=== PATIENT | female | born 1950 | race Two or more races ===

== ENCOUNTER 2025-02-07 02:15 | Emergency (ER) | payer MEDICARE, MEDICAID, SELFPAY ==
[2025-02-07 03:26] VITALS: BP 180/70; PULSE 76; RESP 20; TEMP 37.4; O2SAT 97
--- NOTE | 2025-02-07 03:33 | XR_ITS ---
Examination: Duplex scan of the lower extremity, unilateral right complete Date and time of exam: February 07, 2025 0518 hours INDICATIONS: Right leg pain beginning today Technique: Duplex scan of the extremity veins using B-mode/grayscale imaging and Doppler spectral analysis and color flow Attention is directed to internal echogenicity, compression and augmentation involving these veins, color flow assessment, spectral analysis Findings: Major deep venous structures in the extremity demonstrate normal course and caliber. There is no evidence of deep vein thrombosis. Normal color flow and spectral analysis 4.1 cm popliteal cyst Impression: Negative for DVT..
--- NOTE | 2025-02-07 03:33 | XR_ITS ---
Examination: AP chest single view Technique one AP portable upright chest single view Date and time: February 07, 2025, 0352 hours INDICATIONS: Weakness shortness of breath today. FINDINGS: No significant cardiac enlargement. No pneumonia or pulmonary edema. Prominent osteopenia IMPRESSION: No active disease.
--- NOTE | 2025-02-07 03:33 | EKG_ITS ---
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
--- NOTE | 2025-02-07 03:35 | PD.EDRME ---
Rapid Medical Screening Exam [facility] Arrival date/time: 02/07/25 02:15 74F with history of HTN presents to ED with 1 week worsening R lower back pain that radiates down RLE and up to neck and head. Patient denies fall/trauma. Chief Complaint: Extremity Problem,Nontraumatic Vital signs: Vital Signs Temperature 99.4 F 02/07/25 03:26 Pulse Rate 76 02/07/25 03:26 Respiratory Rate 20 02/07/25 03:26 Blood Pressure 180/70 H 02/07/25 03:26 Pulse Oximetry (%) 97 02/07/25 03:26 Oxygen Delivery Method Room Air 02/07/25 03:26
[2025-02-07] MEDS: HYDROcodone/APAP 5/325 TABLET 1 TAB PO (03:42)
[2025-02-07 04:41] LABS: Basophils # (Auto) 0.1 Thou/mm3 (0.0-0.2); Basophils % (Auto) 1 % (0-2.5); Eosinophils # (Auto) 0.2 Thou/mm3 (0.0-0.5); Eosinophils % (Auto) 2 % (0-10); Hematocrit 37.2 % (36.0-46.0); Hemoglobin 12.2 g/dL (12.0-16.0); Immature Granulocytes % (Auto) 1 % (0-0); Immature Granulocytes Auto 0.05 Thou/mm3 (0.00-0.00); Lymphocytes # (Auto) 2.1 Thou/mm3 (1.0-4.8); Lymphocytes % (Auto) 22 % (10-50); Mean Corpuscular HGB Conc 32.8 g/dl (31.0-37.0); Mean Corpuscular Hemoglobin 27.9 pg (25.0-35.0); Mean Corpuscular Volume 85 fL (80-100); Monocytes # (Auto) 0.8 Thou/mm3 (0.0-0.8); Monocytes % (Auto) 8 % (0-12); Neutrophils # (Auto) 6.6 Thou/mm3 (1.8-7.7); Neutrophils % (Auto) 67 % (37-80); Nucleated Red Blood Cell % 0 /100 WBC (0); Platelet Count 249 Thou/mm3 (140-440); RDW Standard Deviation 41.9 fL (36.4-46.3); Red Blood Count 4.38 Miln/mm3 (4.00-5.20); White Blood Count 9.8 Thou/mm3 (3.6-11.0)
[2025-02-07 04:57] LABS: Partial Thromboplastin Time 26.8 Seconds (22.0-36.0); Prothrombin Time 10.7 Seconds (9.0-12.2)
[2025-02-07 05:02] LABS: Alanine Aminotransferase 17 U/L (10-49); Albumin, Serum 4.9 gm/dL (3.4-4.8); Albumin/Globulin Ratio 2.1 (1.2-2.2); Alkaline Phosphatase 88 U/L (46-116); Anion Gap 9 (7-16); Aspartate Amino Transferase 24 U/L (0-34); BUN/Creatinine Ratio 29 Ratio (12-20); Bilirubin,Total 0.3 mg/dL (0.3-1.2); Blood Urea Nitrogen 20 mg/dL (9-23); Calcium 9.4 mg/dL (8.3-10.6); Calcium (Corrected) 9.4 mg/dL (8.5-10.1); Carbon Dioxide 27.9 mMol/L (20.0-31.0); Chloride 100 mMol/L (98-107); Creatinine (Component) 0.7 mg/dL (0.6-1.3); Globulin 2.3 gm/dL (2.3-3.5); Glucose 121 mg/dL (74-106); Osmolality,Calculated 277 (275-295); Sodium 137 mMol/L (136-145); Total Protein 7.2 gm/dL (5.7-8.2); Troponin I < 0.020 ng/mL (0.0-0.045); eGFR > 60 See Note
[2025-02-07 06:14] VITALS: BP 152/71; PULSE 63; RESP 19; TEMP 36.8; O2SAT 98
[2025-02-07] MEDS: KETOROLAC INJ 60 MG/2 ML VIAL 30 MG IM (06:34)
--- NOTE | 2025-02-07 08:00 | PD.EDEXREM ---
ED Extremity Problem RME/HPI General Chief complaint: Extremity Problem,Nontraumatic Stated complaint: RIGHT LEG PAIN Time Seen by Provider: 02/07/25 06:21 Source: patient Arrival date/time: 02/07/25 02:15 74-year-old female with a history of hypertension presents to the emergency room with a chief complaint of lower back pain and pain that shoots down her right lower leg x 1 week. Mode of arrival: ambulatory Limitations: no limitations RME / HPI RME / HPI Narrative: 02/07/25 02:15 74F with history of HTN presents to ED with 1 week worsening R lower back pain that radiates down RLE and up to neck and head. Patient denies fall/trauma. Related Data Previous Rx's ?Medication ?Instructions ?Recorded alprazolam 0.25 mg tablet (Xanax) 0.25 mg PO TID PRN anxiety #14 tabs 03/08/24 famotidine 40 mg tablet (Pepcid) 40 mg PO QDAY #30 tabs 03/08/24 magnesium hydroxide 400 mg/5 mL 20 ml PO TID PRN stomach upset 03/08/24 oral suspension (Milk of Magnesia) #355 mL Allergies Allergy/AdvReac Type Severity Reaction Status Date / Time No Known Allergies Allergy Verified 02/07/25 03:06 Review of Systems Review of Systems Systems Reviewed: All systems reviewed, normal except as documented Constitutional Constitutional: Reports system reviewed and no additional complaints, except as documented, Denies fatigue, Denies fever(s), Denies headache(s) and Denies weakness Eyes Eyes: Reports system reviewed and no additional complaints, except as documented, Denies blurry vision and Denies change in vision ENT Ears, Nose, Mouth, and Throat: Reports system reviewed and no additional complaints, except as documented, Denies otalgia, Denies headache(s), Denies nasal congestion, Denies throat swelling and Denies vertigo Cardiovascular Cardiovascular: Reports system reviewed and no additional complaints, except as documented, Denies chest pain, Denies dyspnea and Denies dyspnea on exertion Respiratory Respiratory: Reports system reviewed and no additional complaints, except as documented, Denies chest congestion, Denies cough, Denies dyspnea, Denies dyspnea on exertion and Denies wheezing Gastrointestinal Gastrointestinal: Reports system reviewed and no additional complaints, except as documented, Denies abdominal pain, Denies cramping, Denies nausea and Denies vomiting Genitourinary Genitourinary: Reports system reviewed and no additional complaints, except as documented Musculoskeletal Musculoskeletal: Reports system reviewed and no additional complaints, except as documented, Reports abnormal gait, Reports arthralgias, Denies back pain, Reports joint swelling and Reports limited range of motion Integumentary/Breasts Skin/Breast: Reports system reviewed and no additional complaints, except as documented and Denies wounds Neurologic Neurologic: Reports system reviewed and no additional complaints, except as documented, Reports abnormal gait, Denies confusion, Denies headache(s), Denies lack of coordination, Denies vertigo and Denies weakness Psychiatric Psychiatric: Reports system reviewed and no additional complaints, except as documented, Denies anxiety, Denies confusion, Denies depression, Denies paranoia, Denies suicidal ideation and Denies tactile hallucinations Endocrine Endocrine: Reports system reviewed and no additional complaints, except as documented and Denies fatigue Hematologic/Lymphatic Hematologic/Lymphatic: Reports system reviewed and no additional complaints, except as documented and Denies lymphadenopathy Allergic/Immunologic Allergic/Immunologic: Reports system reviewed and no additional complaints, except as documented, Denies throat swelling, Denies urticaria and Denies wheezing Past Medical History Past Medical History CARDIAC: Negative Congestive Heart Failure RESPIRATORY: Negative Chronic Obstructive Pulmonary Disease (COPD) GENITOURINARY: Negative Renal Disease ENDOCRINE: Negative Diabetes Mellitus Type 1 or Diabetes Mellitus Type 2 Social History SMOKING STATUS: Never smoker ED Exam General Limitations: Present no limitations General appearance: Present alert and in no apparent distress Head Head exam: Present atraumatic Eye Eye exam: Present normal appearance, PERRL and EOMI ENT ENT exam: Present normal exam, normal oropharynx and mucous membranes moist Neck Neck exam: Present normal inspection, full ROM and trachea midline Chest Chest inspection: Present normal inspection and symmetric chest wall rise Respiratory Respiratory exam: Present normal lung sounds bilaterally Cardiovascular Cardiovascular exam: Present regular rate, normal rhythm and normal heart sounds Abdominal Exam Abdominal exam: Present soft and normal bowel sounds Extremities Exam Extremities exam: Present normal inspection and full ROM Expanded Lower Extremity Exam Hip/Pelvis exam: Present normal inspection Upper leg exam: Present normal inspection Knee exam: Present normal inspection Lower leg exam: Present full ROM and tenderness Ankle exam: Present normal inspection Foot/toe exam: Present normal inspection Gait: observed and limited by pain Back Exam Back exam: Present normal inspection, full ROM, vertebral tenderness and sciatic notch tenderness (R) Neurological Exam Neurological exam: Present alert, oriented X3 and CN II-XII intact Psychiatric Psychiatric exam: Present normal affect and normal mood Skin Skin exam: Present warm, dry, intact and normal color Course Quality Measures none Orders Category Date Time Status EKG (ED ONLY) *Do not use* NOW Care 02/07/25 03:33 Completed EKG (ED Only) Stat Exams 02/07/25 03:33 Draft US venous doppler LE RT Stat Exams 02/07/25 03:33 Completed XR chest 1V portable Stat Exams 02/07/25 03:33 Taken CBC Stat Lab 02/07/25 04:15 Completed Comprehensive Metabolic Panel Stat Lab 02/07/25 04:15 Completed Magnesium Stat Lab 02/07/25 04:15 Completed Partial Thromboplastin Time Stat Lab 02/07/25 04:15 Completed Prothrombin Time with INR Stat Lab 02/07/25 04:15 Completed Troponin I Stat Lab 02/07/25 04:15 Completed HYDROcodone*/APAP 5/325 [[place] 5/325] Med 02/07/25 03:33 Discontinued 1 tab PO X1 ONE Ketorolac Inj [Toradol Inj] Med 02/07/25 06:21 Discontinued 30 mg IM X1 ONE Vital Signs Vital signs: Vital Signs Temperature 99.4 F 02/07/25 03:26 Pulse Rate 76 02/07/25 03:26 Respiratory Rate 20 02/07/25 03:26 Blood Pressure 180/70 H 02/07/25 03:26 Pulse Oximetry (%) 97 02/07/25 03:26 Oxygen Delivery Method Room Air 02/07/25 03:26 O2 saturation 97% within normal limits Extremity Problem MDM Narrative MDM Narrative:: 74-year-old female with a history of hypertension presents to the emergency room with a chief complaint of lower back pain and pain that shoots down her right lower leg x 1 week. Patient is hemodynamically stable and in no apparent distress. Physical examination shows lumbar back pain that shoots down her right hip down her right knee and into her right lower leg. There is no swelling and there is no erythema. An ultrasound Doppler was completed which was negative for DVT. There was a 4.1 cm incidental finding of a popliteal cyst. The patient was educated to follow-up with her primary care provider for further management. Patient has had a knee replacement to her left knee and states since her surgery she has put a lot of pressure on her right side. Patient denies any ground-level fall or trauma. Patient was discharged and educated to follow-up with primary care provider in the next 24 to 48 hours and return to the emergency room for any evidence of worsening signs or symptoms Patient data External records reviewed:: [facility] previous records Clinical information provided by:: patient Social determinants that could affect healthcare access:: none Patient has the following chronic illnesses:: Hypertension How is presenting disease/condition affected by chronic disease/condition?: no chronic disease Evaluation data The following diagnostics were reviewed and interpreted by me:: lab results and radiology exam(s) Lab and/or radiology exams considered but not ordered:: Labs and radiology exams considered in order Interpretation Summary: Ultrasound Doppler-Findings: Major deep venous structures in the extremity demonstrate normal course and caliber. There is no evidence of deep vein thrombosis. Normal color flow and spectral analysis 4.1 cm popliteal cyst Impression: Negative for DVT.. Medications / Prescriptions Medications or Prescriptions considered but not ordered:: Medication given Medication administrations:: Medication Administration History Discontinued Medications Hydrocodone Bitart/Acetaminophen (Hydrocodone/[place]ap 5/325 Tablet) 1 tab PO X1 ONE Stop: 02/07/25 03:34 Last Admin: 02/07/25 03:42 Dose: 1 tab Documented By: CVL Ketorolac Tromethamine (Ketorolac Inj 60 Mg/2 Ml Vial) 30 mg IM X1 ONE Stop: 02/07/25 06:22 Last Admin: 02/07/25 06:34 Dose: 30 mg Documented By: CVL Medication given Consultations Consultation(s) initiated? (list below): No Diagnosis Extremity Problem Differential Diagnosis: other (Acute right lower extremity pain/sciatica) Most likely diagnosis given after review of the tests above:: Sciatica Admission Indicated Admission indicated?: not indicated Admission Request Was there a request for admission?: No Disposition Plan Disposition Plan: Discharge Discharge Attestation Discharge Attestation: The patient and all family members were given an opportunity to ask questions and understood the discharge instructions. Discharge instructions specifically effects, indications for sooner follow up or return to the emergency department, and the expected course of current diagnosis. Patient condition: Stable Discharge Plan Plan Patient Disposition: HOME (Self Care) Discharge Disposition comment: Stable Prescriptions/Referrals Prescriptions/Med Rec: No Action alprazolam [Xanax] 0.25 mg tablet 0.25 mg PO TID PRN (Reason: anxiety) Qty: 14 0RF famotidine [Pepcid] 40 mg tablet 40 mg PO QDAY Qty: 30 0RF magnesium hydroxide [Milk of Magnesia] 400 mg/5 mL suspension 20 ml PO TID PRN (Reason: stomach upset) Qty: 355 0RF Ref[facility]: [facility]), [Primary Care Provider] - In 1 week Problem List Clinical Impression: Sciatica, Narvaez cyst Patient/Caregiver Discharge Instructions Education Materials: ED Sciatica Additional Instructions: Please follow-up with your primary care provider in the next 24 to 48 hours Your ultrasound was negative for any blood clot. There was an incidental finding of a Narvaez's cyst. Please follow-up with your primary care provider for further management For any evidence of worsening signs or symptoms return to the emergency room immediately Print Language: Pashto Stand Alone Forms: Dimple Award Info., Patient Portal Info Letter PA/TIE SAWYER Supervising Physician PA/JACE Supervising Physician: Dr. Drew
== END 2025-02-07 08:21 | disposition home or self-care (01) ==
PROVIDERS: Physician Assistant; Emergency Provider Emergency Medicine; PCP Family Medicine
DX: M71.21 Synovial cyst of popliteal space [Baker], right knee (principal); M54.41 Lumbago with sciatica, right side; R94.31 Abnormal electrocardiogram [ECG] [EKG]; R53.1 Weakness; R06.02 Shortness of breath
CPT/HCPCS: 36415; 71045; 80053; 83735; 84484; 85025; 85610; 85730; 93005; 93971; 96372; 99284; J1885; A9270

== ENCOUNTER 2025-05-22 19:55 | Emergency (ER) | payer MEDICARE, MEDICAID, SELFPAY ==
[2025-05-22 19:57] VITALS: PULSE 102; RESP 14; O2SAT 99; BMI 25.6
--- NOTE | 2025-05-22 19:58 | EKG_ITS ---
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1950 Requested By: ED Temporary Provider Order Number: [id number] Reading MD: ED Temporary Provider Measurements Intervals [place] Rate: 105 P: 77 NM: 213 QRS: -23 QRSD: 112 T: 81 QT: 341 QTc: 451 Interpretive Statements SINUS TACHYCARDIA WITH FIRST DEGREE AV BLOCK INCOMPLETE RIGHT BUNDLE BRANCH BLOCK [90+ ms QRS DURATION, TERMINAL R IN V1/V2, 40+ ms S IN I/aVL/V4/V5/V6] LEFT VENTRICULAR HYPERTROPHY AND ST-T CHANGE [VOLTAGE CRITERIA PLUS ST/T ABNORMALITY] POSSIBLE SEPTAL MYOCARDIAL INFARCTION , OF INDETERMINATE AGE [30 ms Q WAVE IN V1/V2] Compared to ECG 02/07/2025 03:40:31 First degree AV block now present Incomplete right bundle-branch block now present Myocardial infarct finding now present Sinus rhythm no longer present ST (T wave) deviation still present /store/S0/[id number]/ecg/[id number].pdf
[2025-05-22 20:18] VITALS: BP 121/78; PULSE 105; RESP 19; TEMP 39.4; O2SAT 96; BMI 33.3
[2025-05-22 20:34] VITALS: BP 121/78; PULSE 91; RESP 20; O2SAT 99
--- NOTE | 2025-05-22 21:08 | EDNOTE_ITS ---
ED Fever RME/HPI General Chief Complaint: Fever Stated Complaint: ABD PAIN/FEVER Time Seen by Provider: 05/22/25 20:08 Arrival date/time: 05/22/25 19:55 RME / HPI RME / HPI Narrative: 75-year-old female patient was brought in by family for evaluation regarding fever. Onset of symptoms few minutes prior to ER visit as sudden onset of fever, not feeling well, dryness oral mucosa, body aches, severity moderate. Patient got influenza and pneumonia shot earlier today. Patient denies any cough denies any abdominal pain. Denies any headache denies any neck pain. Patient denies any other complaints no medication was taken prior to ER visit. Related Data Previous Rx's ?Medication ?Instructions ?Recorded alprazolam 0.25 mg tablet (Xanax) 0.25 mg PO TID PRN a nxiety #14 tabs 03/08/24 famotidine 40 mg tablet (Pepcid) 40 mg PO QDAY #30 tab s 03/08/24 magnesium hydroxide 400 mg/5 mL 20 ml PO TID PRN stoma ch upset 03/08/24 oral suspension (Milk of Magnesia) #355 mL Allergies Allergy/AdvReac Type Severity Reaction Status Date / Time No Known Allergies Allergy Verified 02/07/25 03:06 Review of Systems Review of Systems Narrative Review of Systems: Review of system reviewed and within normal limits except mentioned in HPI Physical Exam Narrative Physical exam: VITAL SIGNS: Reviewed. GENERAL APPEARANCE: Alert and interactive, follows commands, no acute distress, HEAD AND FACE: Non-traumatic. ENT: PERRL, pink conjunctivitis, eyelid no trauma, Mucous membrane moist. NECK: Supple, nontender, no nuchal rigidity. CHEST: No tenderness, no crepitus, no paradoxical movement, no retractions. LUNGS: Clear, well ventilated, symmetric, no rales, no wheezing, no ronchi, no stridor, good breath sounds bilaterally. HEART: Regular rate, regular rhythm, no murmur, no gallops. ABDOMEN: Soft, positive bowel sounds, nondistended, no guarding, nontender, no rebound, no masses, RECTAL: Deferred. GENITAL: Deferred. NEUROLOGICAL: Gross motor function intact sensory function intact, Appropriate for age. MUSCULOSKELETAL: low back nontender, full range of motion. EXTREMITIES: Nontender, full range of motion. SKIN: Color pink, dry, no rash, no lacerations, no abrasions, no contusions. LYMPHATICS: Deferred. Course Quality Measures none Orders Category Date Time Status EKG (ED ONLY) *Do not use* NOW Care 05/22/25 19:58 Completed EKG (ED Only) Stat Exams 05/22/25 19:58 Draft CBC [CBC] Stat Lab 05/22/25 21:08 Completed CMP [Comprehensive Metabolic Panel] Stat Lab 05/22/25 21:16 Completed UA, C/S IF [Urinalysis, C/S if Indicated] Stat Lab 05/22/25 22:51 Completed ACETAMINOPHEN w/COD 300-30 [Tylenol w/Cod #3] Med 05/22/25 21:06 Discontinued 1 tab PO X1 ONE Ibuprofen Tab [Motrin Tab] Med 05/22/25 22:23 Discontinued 800 mg PO X1 ONE Ringers Lactated 1000 ml [Lactated Ringers] 1,000 ml Med 05/22/25 21:06 Discontinued IV 999 mls/hr Vital Signs Vital signs: Vital Signs Temperature 103 F H 05/22/25 20:18 Pulse Rate 105 H 05/22/25 20:18 Respiratory Rate 19 05/22/25 20:18 Blood Pressure 121/78 05/22/25 20:18 Pulse Oximetry (%) 96 05/22/25 20:18 Oxygen Delivery Method Room Air 05/22/25 20:18 Fever MDM Narrative [facility] Narrative:: Patient's workup today all came back unremarkable including normal urinalysis no leukocytosis noted. EKG showed sinus tachycardia, ventricular rate of [address] segment elevation or depression noted. Patient was given Tylenol with codeine IV fluids and Motrin with significant improvement of symptoms. Results discussed with them. Stable for discharge home patient's fever secondary to her flu vaccination and pneumonia vaccinations. Patient data External records reviewed:: None Clinical information provided by:: patient Social determinants that could affect healthcare access:: none Patient has the following chronic illnesses:: Hypertension How is presenting disease/condition affected by chronic disease/condition?: exacerbated by Evaluation data The following diagnostics were reviewed and interpreted by me:: lab results and EKG tracing(s) Lab and/or radiology exams considered but not ordered:: None Interpretation Summary: See results MDM Medications / Prescriptions Medications or Prescriptions considered but not ordered:: None Medication administrations:: Medication Administration History Discontinued Medications Acetaminophen/Codeine Phosphate (Acetaminophen W/Cod 300-30 Tablet) 1 tab PO X1 ONE Stop: 05/22/25 21:07 Last Admin: 05/22/25 22:23 Dose: 1 tab Documented By: MAYTE Lactated Ringer's (Lactated Ringers) 1,000 mls @ 999 mls/hr IV .Q1H1M ONE Stop: 05/22/25 22:06 Ibuprofen (Ibuprofen Tab 400 Mg Tablet) 800 mg PO X1 ONE Stop: 05/22/25 22:24 IV fluids, Motrin, Tylenol 3 Consultations Consultation(s) initiated? (list below): No Diagnosis Fever Differential Diagnosis: other (Fever, UTI, postvaccination fever) Most likely diagnosis given after review of the tests above:: Postvaccination fever Admission Indicated Admission indicated?: not indicated Explain why admission is indicated or not indicated:: Stable Admission Request Was there a request for admission?: No Disposition Plan Disposition Plan: Discharge Discharge Attestation Discharge Attestation: The patient and all family members were given an opportunity to ask questions and understood the discharge instructions. Discharge instructions specifically effects, indications for sooner follow up or return to the emergency department, and the expected course of current diagnosis. Patient condition: Stable Discharge Plan Plan Patient Disposition: HOME (Self Care) Discharge Disposition comment: Stable Prescriptions/Referrals Prescriptions/Med Rec: No Action alprazolam [Xanax] 0.25 mg tablet 0.25 mg PO TID PRN (Reason: anxiety) Qty: 14 0RF famotidine [Pepcid] 40 mg tablet 40 mg PO QDAY Qty: 30 0RF magnesium hydroxide [Milk of Magnesia] 400 mg/5 mL suspension 20 ml PO TID PRN (Reason: stomach upset) Qty: 355 0RF Referrals: Katharine Hill MD [Primary Care Provider] - In 1 week Problem List Clinical Impression: Post-vaccination fever Patient/Caregiver Discharge Instructions Discharge Activity: activity as tolerated Education Materials: Acetaminophen tablets or caplets Additional Instructions: Thank you for the opportunity for serving you today. You are stable for discharged . You are advised to: Follow-up with your PCP in 1 to 2 days Return to ED for worsening of symptoms Increase oral fluids Take Tylenol Motrin as needed for fever Print Language: Wolof Stand Alone Forms: Dimple Award Info., Patient Portal Info Letter PA/DAILY SALES AUDIT CLERK Supervising Physician PA/DAILY SALES AUDIT CLERK Supervising Physician: MD Suri
[2025-05-22 21:17] VITALS: BP 151/57; PULSE 86; RESP 19; TEMP 39; O2SAT 96
[2025-05-22 21:23] LABS: Basophils # (Auto) 0.1 Thou/mm3 (0.0-0.2); Basophils % (Auto) 1 % (0-2.5); Eosinophils # (Auto) 0.1 Thou/mm3 (0.0-0.5); Eosinophils % (Auto) 1 % (0-10); Hematocrit 33.8 % (36.0-46.0); Hemoglobin 10.9 g/dL (12.0-16.0); Immature Granulocytes Auto 0.02 Thou/mm3 (0.00-0.00); Lymphocytes # (Auto) 0.8 Thou/mm3 (1.0-4.8); Lymphocytes % (Auto) 9 % (10-50); Mean Corpuscular HGB Conc 32.2 g/dl (31.0-37.0); Mean Corpuscular Hemoglobin 27.9 pg (25.0-35.0); Mean Corpuscular Volume 86 fL (80-100); Monocytes # (Auto) 0.7 Thou/mm3 (0.0-0.8); Monocytes % (Auto) 7 % (0-12); Neutrophils # (Auto) 7.8 Thou/mm3 (1.8-7.7); Neutrophils % (Auto) 82 % (37-80); Nucleated Red Blood Cell # 0.00 Thou/mm3 (0.00-0.00); Nucleated Red Blood Cell % 0 /100 WBC (0); Platelet Count 242 Thou/mm3 (140-440); RDW Standard Deviation 42.7 fL (36.4-46.3); Red Blood Count 3.91 Miln/mm3 (4.00-5.20); White Blood Count 9.5 Thou/mm3 (3.6-11.0)
[2025-05-22 21:45] LABS: Alanine Aminotransferase 12 U/L (10-49); Albumin, Serum 4.5 gm/dL (3.4-4.8); Albumin/Globulin Ratio 1.7 (1.2-2.2); Alkaline Phosphatase 105 U/L (46-116); Anion Gap 11 (7-16); Aspartate Amino Transferase 19 U/L (0-34); BUN/Creatinine Ratio 21 Ratio (12-20); Bilirubin,Total 0.2 mg/dL (0.3-1.2); Blood Urea Nitrogen 15 mg/dL (9-23); Calcium 9.3 mg/dL (8.3-10.6); Calcium (Corrected) 9.3 mg/dL (8.5-10.1); Carbon Dioxide 25.1 mMol/L (20.0-31.0); Chloride 105 mMol/L (98-107); Creatinine (Component) 0.7 mg/dL (0.6-1.3); Estimated Creatinine Clearance 59.3 mL/min (>60); Globulin 2.7 gm/dL (2.3-3.5); Glucose 112 mg/dL (74-106); Osmolality,Calculated 283 (275-295); Potassium 3.7 mMol/L (3.4-5.1); Sodium 141 mMol/L (136-145); Total Protein 7.2 gm/dL (5.7-8.2); eGFR > 60 See Note
[2025-05-22] MEDS: ACETAMINOPHEN w/COD 300-30 TABLET 1 TAB PO (22:23)
[2025-05-22 23:09] LABS: Collection Type, Urine Clean Catch
[2025-05-22 23:14] LABS: Bilirubin,Urine Negative (Negative); Blood,Urine Negative (Negative); Clarity,Urine Clear (Clear/Hazy); Color,Urine Lt-Yellow (Lt Yel-Yel); Culture Indicated,Urine Not Indicated; Glucose, Urine Negative (Negative); Ketones,Urine Negative (Negative); Leukocyte Esterase,Urine Negative (Negative); Nitrite,Urine Negative (Negative); PH,Urine 5.5 (5.0-7.0); Protein,Urine Trace (Neg - Trace); RBC,Urine 2 /hpf (0-3); Specific Gravity,Urine 1.027 (1.001-1.035); Squamous Epithelial Cell,Urine < 1 /hpf (0-5); Urobilinogen,Urine Negative mg/dL (0.0-1.0); WBC,Urine 1 /hpf (0-5)
[2025-05-22 23:32] VITALS: BP 156/6; PULSE 85; RESP 14; TEMP 39.1; O2SAT 99
[2025-05-22 23:36] VITALS: TEMP 39.1
[2025-05-22] MEDS: IBUPROFEN TAB 400 MG TABLET 800 MG PO (23:36)
== END 2025-05-22 23:49 | disposition home or self-care (01) ==
PROVIDERS: Nurse Practitioner Family; Emergency Provider Emergency Medicine; PCP Family Medicine
DX: R50.83 Postvaccination fever (principal); I44.0 Atrioventricular block, first degree; R00.0 Tachycardia, unspecified; I10 Essential (primary) hypertension
CPT/HCPCS: 36415; 80053; 81001; 85025; 93005; 99283; A9270